=== PATIENT | male | born 1995 | race Caucasian/White ===

== ENCOUNTER 2018-06-10 19:59 | Emergency (ER) | payer OTHER ==
[~2018-06-10] VITALS: Ht 177.8 cm; Wt 104.3 kg
[2018-06-10 22:01] LABS: Influenza A Negative (NEGATIVE); Influenza B Negative (NEGATIVE)
== END 2018-06-10 22:33 | disposition home or self-care (01) ==
LOC: ER 19:59
PROVIDERS: Physician Assistant
DX: J18.9 Pneumonia, unspecified organism (principal); J06.9 Acute upper respiratory infection, unspecified; J45.909 Unspecified asthma, uncomplicated; F17.200 Nicotine dependence, unspecified, uncomplicated
CPT/HCPCS: 71046; 87804; 99283-25

== ENCOUNTER 2019-02-06 21:47 | Emergency (ER) | payer OTHER ==
[~2019-02-06] VITALS: Ht 180.3 cm; Wt 104.3 kg
[2019-02-06] MEDS ORDERED: Flovent Disku100 MCG INH (21:55)
[2019-02-06] MEDS ORDERED: ALBU2.5V5 INH (21:55)
[2019-02-06] MEDS ORDERED: Ventolin/Prove6.7 GM INH (21:56)
[2019-02-06] MEDS ORDERED: HYDR1TAB94 PO (22:32)
[2019-02-06] MEDS ORDERED: IBUP400 PO ×2 (22:32→23:14)
== END 2019-02-06 23:20 | disposition home or self-care (01) ==
LOC: ER 21:47
DX: S82.201D Unspecified fracture of shaft of right tibia, subsequent encounter for closed fracture with routine healing (principal); M97.11XD Periprosthetic fracture around internal prosthetic right knee joint, subsequent encounter; T30.0 Burn of unspecified body region, unspecified degree; S80.01XA Contusion of right knee, initial encounter; W10.9XXA Fall (on) (from) unspecified stairs and steps, initial encounter; Z88.0 Allergy status to penicillin; Z79.899 Other long term (current) drug therapy; J45.909 Unspecified asthma, uncomplicated; F17.200 Nicotine dependence, unspecified, uncomplicated
CPT/HCPCS: 73590; 99283-25

== ENCOUNTER → 2019-03-06 | Outpatient (CLI) | payer OTHER ==
[~2019-03-06] MED LIST: ALBU2.5V5 INH; Flovent Disku100 MCG INH; HYDR1TAB94 PO; IBUP400 PO; Ventolin/Prove6.7 GM INH
[2019-03-06 17:10] LABS: U Amphetamine Screen Not Detected; U Barbituate Screen Not Detected; U Benzodiazapine Screen Not Detected; U Buprenorphine Screen Not Detected; U Cannabinoids Screen DETECTED; U Cocaine Screen Not Detected; U Methadone Screen Not Detected; U Methamphetamine Screen Not Detected; U Opiates Screen Not Detected; U Oxycodone Screen Not Detected; U Phencyclidine Screen Not Detected; U Propoxyphene Screen Not Detected
== END ==
LOC: LAB 15:35 → LAB SHORT 15:35
PROVIDERS: Registered Nurse Psychiatric/Mental Health
DX: Z51.81 Encounter for therapeutic drug level monitoring (principal); F31.81 Bipolar II disorder; Z79.899 Other long term (current) drug therapy

== ENCOUNTER 2019-07-08 19:30 | Emergency (ER) | payer OTHER ==
[~2019-07-08] VITALS: Ht 180.3 cm; Wt 104.3 kg
[2019-07-08] MEDS ORDERED: BENZ100A PO (23:27)
== END 2019-07-08 23:40 | disposition home or self-care (01) ==
LOC: ER 19:30
DX: J06.9 Acute upper respiratory infection, unspecified (principal); J45.909 Unspecified asthma, uncomplicated; Z88.0 Allergy status to penicillin; Z79.899 Other long term (current) drug therapy; Z79.51 Long term (current) use of inhaled steroids
CPT/HCPCS: 99283

== ENCOUNTER 2021-11-02 11:31 | Emergency (ER) | payer OTHER ==
[~2021-11-02] VITALS: Ht 177.8 cm; Wt 99.8 kg
[~2021-11-02 11:31] MED LIST changes: +BENZ100A PO
== END 2021-11-02 12:41 | disposition home or self-care (01) ==
LOC: ER 11:31
DX: M25.562 Pain in left knee (principal); Z88.0 Allergy status to penicillin
CPT/HCPCS: 99281